=== PATIENT | male | born 1960 | race Hispanic/Latino ===

== ENCOUNTER 2018-11-06 14:57 | Inpatient (IN) | payer SELFPAY ==
[~2018-11-06] VITALS: Ht 165.1 cm; Wt 85.4 kg
[2018-11-06 15:31] LABS: APPEARANCE,URINE Clear (CLEAR); BILIRUBIN,URINE Negative (NEGATIVE); COLOR,URINE Yellow (YELLOW); GLUCOSE, URINE (UA) >=1000 mg/dL (NEGATIVE); KETONES,URINE 15 mg/dL (NEGATIVE); LEUKOCYTE ESTERASE ,URINE Negative (NEGATIVE); NITRATE,URINE Negative (NEGATIVE); OCCULT BLOOD,URINE Negative (NEGATIVE); PROTEIN,URINE POS 2+ mg/dL (NEGATIVE); UROBILINOGEN,URINE 0.2 mg/dL (0.2-1.0)
[2018-11-06] MEDS ORDERED: PROCHLORPERAZINE EDISYLATE 10 MG/2 ML VIAL ONE (15:40)
[2018-11-06] MEDS ORDERED: DiphenhydrAMINE HCL 50 MG/ML VIAL ONE (15:40)
[2018-11-06 15:43] LABS: AMPHET/METH SCREEN,URINE NEGATIVE (NEGATIVE); BARBITURATE SCREEN, URINE NEGATIVE (NEGATIVE); BENZODIAZEPINES SCREEN,URINE NEGATIVE (NEGATIVE); CANNABINOID SCREEN,URINE NEGATIVE (NEGATIVE); COCAINE SCREEN,URINE NEGATIVE (NEGATIVE); OPIATE SCREEN,URINE NEGATIVE (NEGATIVE); PHENCYCLIDINE SCREEN,URINE NEGATIVE (NEGATIVE)
[2018-11-06 16:07] LABS: BACTERIA,URINE Rare /HPF (None Seen); HYALINE CASTS, URINE 0-1 /LPF (0-1 /LPF); RBC,URINE 0-1 /HPF (0-1); SQUAMOUS EPITHELIAL CELL,UR Rare /HPF (0-2); WBC,URINE 0-1 /HPF (0-1)
[2018-11-06 16:10] LABS: BASOPHILS % (AUTO) 0.3 % (0.0-5.0); EOSINOPHILS % (AUTO) 1.7 % (0.0-8.0); HEMATOCRIT 40.2 % (42-54); LYMPHOCYTES % (AUTO) 35.4 % (21.0-51.0); MEAN CORPUSCULAR HEMOGLOBIN 31.9 pg (27.0-33.0); MEAN CORPUSCULAR HGB CONC 36.6 g/dL (32.0-36.0); MEAN CORPUSCULAR VOLUME 87.2 fL (79-99); MONOCYTES % (AUTO) 5.6 % (3.0-13.0); RED BLOOD CELL COUNT(AUTO) 4.62 MIL/uL (4.50-6.20); RED CELL DISTRIBUTION WIDTH 13.8 % (11.0-15.5); WHITE BLOOD COUNT (AUTO) 6.6 K/uL (4.8-10.8)
[2018-11-06 16:11] LABS: NUCLEATED RED BLOOD CELLS 0.2 % (0.0-0.19); PLATELET COUNT (AUTO) 151 K/uL (130-400)
[2018-11-06 16:18] LABS: POTASSIUM 3.7 mmol/L (3.5-5.1)
[2018-11-06 16:26] LABS: MYOGLOBIN 42 ng/mL (10-92); TROPONIN I < 0.04 ng/mL (0.00-0.06)
[2018-11-06 16:43] LABS: BILIRUBIN,TOTAL 0.2 mg/dL (0.2-1.0)
[2018-11-06 16:45] LABS: ALBUMIN 3.2 g/dL (3.5-5.0); TOTAL PROTEIN, SERUM 5.3 g/dL (6.0-8.3)
[2018-11-06 16:46] LABS: CREATINE KINASE, TOTAL 113 U/L (21-232)
[2018-11-06 17:37] LABS: POTASSIUM 3.6 mmol/L (3.5-5.1)
[2018-11-06 18:21] LABS: CREATININE 0.9 mg/dL (0.5-1.5)
[2018-11-06] MEDS ORDERED: LACTULOSE 20 GM/30 ML UDCUP PO PRN (19:00)
[2018-11-06] MEDS ORDERED: ACETAMINOPHEN 325 MG TAB PO PRN (19:00)
[2018-11-06] MEDS ORDERED: INSULIN HUMULIN R 100 UNIT/ML 3ML ONE (20:06)
[2018-11-06 20:23] LABS: TRIGLYCERIDES 26 mg/dL (30-200)
[2018-11-06 20:27] LABS: HEMOGLOBIN A1C 10.4 % (4.0-6.0)
[2018-11-06 20:45] LABS: LDL DIRECT 128 mg/dL (0-99)
[2018-11-06] MEDS: INSULIN GLARGINE 100 UNITS/ML 10 ML VIAL SQ SCH (21:00)
[2018-11-06] MEDS: FAMOTIDINE 20MG TAB 20 MG TAB PO SCH (21:00)
[2018-11-06] MEDS: INSULIN HUMULIN R 100 UNIT/ML 3ML SQ SCH (21:00)
[2018-11-06 21:25] LABS: CHOLESTEROL 645 mg/dL (<200); HDL CHOLESTEROL 34 mg/dL (29-71)
[2018-11-06] MEDS ORDERED: FAMOTIDINE 20MG TAB 20 MG TAB ONE (22:39)
[2018-11-06] MEDS ORDERED: SODIUM CHLORIDE 0.9% 1000ML 1,000 ML IV ONE (22:40)
[2018-11-07] VITALS (7 sets, daily range): BP systolic 129–178; BP diastolic 62–77
[2018-11-07] MEDS: MORPHINE SULFATE 2 MG/ML 1ML SYG IV PRN ×2 (01:51→20:53)
[2018-11-07] MEDS: SODIUM CHLORIDE 0.9% 1000ML 1,000 ML IV SCH (01:53)
[2018-11-07] MEDS: ONDANSETRON HCL 4 MG/2 ML VIAL IV PRN ×2 (01:57→08:52)
[2018-11-07 05:18] LABS: HEMATOCRIT 36.1 % (42-54); MEAN CORPUSCULAR HEMOGLOBIN 43.9 pg (27.0-33.0); MEAN CORPUSCULAR HGB CONC 51.3 g/dL (32.0-36.0); MEAN CORPUSCULAR VOLUME 85.6 fL (79-99); NUCLEATED RED BLOOD CELLS 0.1 % (0.0-0.19); PLATELET COUNT (AUTO) 150 K/uL (130-400); RED BLOOD CELL COUNT(AUTO) 4.22 MIL/uL (4.50-6.20); RED CELL DISTRIBUTION WIDTH 13.8 % (11.0-15.5); WHITE BLOOD COUNT (AUTO) 7.6 K/uL (4.8-10.8)
[2018-11-07 05:57] LABS: CREATININE 0.9 mg/dL (0.5-1.5)
[2018-11-07] MEDS: INSULIN HUMULIN R 100 UNIT/ML 3ML SQ SCH ×4 (06:10→20:43)
[2018-11-07 06:12] LABS: BAND NEUTROPHILS % (MANUAL) 1 % (0-2); BASOPHILS % (MANUAL) 1 % (0-2); EOSINOPHILS % (MANUAL) 1 % (1-6); LYMPHOCYTES % (MANUAL) 41 % (22-44); MAN.DIFF COMMENT-IMPRESSION MANUAL DIFFERENTIAL; MONOCYTES % (MANUAL) 4 % (2-9); PLATELET MORPHOLOGY COMMENT ADEQUATE; REACTIVE LYMPHOCYTES 2 % (0-0); SEGMENTED NEUTROPHILS % 50 % (40-70)
[2018-11-07] MEDS: ENOXAPARIN SODIUM 40 MG/0.4 ML SYRINGE SQ SCH (08:44)
[2018-11-07] MEDS: FAMOTIDINE 20MG TAB 20 MG TAB PO SCH ×2 (08:44→20:38)
[2018-11-07] MEDS: ACETAMINOPHEN 325 MG TAB PO PRN (08:53)
[2018-11-07] MEDS ORDERED: ATEN50TA PO (09:26)
[2018-11-07] MEDS ORDERED: CHLO100T2 PO (09:26)
[2018-11-07] MEDS ORDERED: METF-444 PO (09:26)
--- NOTE | 2018-11-07 14:08 | NUR ---
Nutrition Intervention: Nutrition consult due to poor appetite. Pt. on 75gm CCD diet. Pt. reports fair p.o. intake, although states felt nauseated and threw up x 2 during his meal. Pt. on Zofran for problems with N/V. Labs reviewed(Alb 3.2, BG 176, HgbA1c 10.4%, Chol 645, LDL Chol 128). BMI: 31.3, Obesity Grade 1. Pt. and family educated on Diabetic Heart Healthy diet and provided with education material. Pt's family verbalized understanding. Recommendations: 1) Rec. 75gm CCD Heart Healthy diet. 2) Diabetic Heart healthy diet education given to patient and family. 3) Continue to monitor pt's nutritional status. 4) Consult RD as nutrition concerns arise. Addendum: 11/07/18 at [address] Amended: Links added.
--- NOTE | 2018-11-07 19:30 | NUR ---
ROUNDS PATIENT AWAKE AND ALERT. VOICES ALL NEEDS. NO COMPLAINTS OF PAIN VOICED AT THIS TIME. VITALS STABLE. AFEBRILE. NS INFUSING AT 100ML/HR. UP WITH ASSIST. USES CALL LIGHT. FOLLOWS COMMANDS. FALL PRECAUTIONS IN PLACE. AUTO ACCESSORIES INSTALLER IN PLACE. NSR. CALL LIGHT WITHIN REACH. WILL CONTINUE TO BE OBSERVED. Addendum: 11/07/18 at 2304 by ABUNDIO GOLDEN RN RN Amended: Links added.
[2018-11-07] MEDS: INSULIN GLARGINE 100 UNITS/ML 10 ML VIAL SQ SCH (20:41)
[2018-11-08] MEDS: SODIUM CHLORIDE 0.9% 1000ML 1,000 ML IV SCH ×2 (00:05→19:37)
[2018-11-08 04:00] VITALS: BP 150/76
[2018-11-08 05:53] LABS: HEMATOCRIT 35.5 % (42-54); MEAN CORPUSCULAR HEMOGLOBIN 39.3 pg (27.0-33.0); MEAN CORPUSCULAR HGB CONC 45.6 g/dL (32.0-36.0); MEAN CORPUSCULAR VOLUME 86.1 fL (79-99); NUCLEATED RED BLOOD CELLS 0.3 % (0.0-0.19); PLATELET COUNT (AUTO) 137 K/uL (130-400); RED BLOOD CELL COUNT(AUTO) 4.13 MIL/uL (4.50-6.20); RED CELL DISTRIBUTION WIDTH 14.5 % (11.0-15.5); WHITE BLOOD COUNT (AUTO) 6.2 K/uL (4.8-10.8)
[2018-11-08 06:00] LABS: POTASSIUM 3.8 mmol/L (3.5-5.1)
[2018-11-08 06:17] LABS: EOSINOPHILS % (MANUAL) 2 % (1-6); LYMPHOCYTES % (MANUAL) 42 % (22-44); MAN.DIFF COMMENT-IMPRESSION MANUAL DIFFERENTIAL; MONOCYTES % (MANUAL) 1 % (2-9); PLATELET MORPHOLOGY COMMENT ADEQUATE; SEGMENTED NEUTROPHILS % 55 % (40-70)
[2018-11-08 07:12] LABS: CREATININE 0.8 mg/dL (0.5-1.5)
[2018-11-08 08:00] VITALS: BP 156/90
[2018-11-08] MEDS: FAMOTIDINE 20MG TAB 20 MG TAB PO SCH ×2 (08:07→19:26)
[2018-11-08] MEDS: INSULIN HUMULIN R 100 UNIT/ML 3ML SQ SCH ×4 (08:07→20:49)
[2018-11-08] MEDS: ENOXAPARIN SODIUM 40 MG/0.4 ML SYRINGE SQ SCH (08:08)
[2018-11-08] MEDS: ACETAMINOPHEN 325 MG TAB PO PRN ×3 (08:12→19:27)
[2018-11-08 11:00] VITALS: BP 151/77
--- NOTE | 2018-11-08 13:38 | NUR ---
D/C PLAN cm spoke to pt regarding dc planning. pt lives with spouse. States she is ind. with ADL's. CM provided community resources packet. States spouse can assist in care if needed. Plan to home. CM to f/u. Addendum: 11/08/18 at 1339 by JAVIER GRANT CM Amended: Links added.
[2018-11-08 16:00] VITALS: BP 152/89
[2018-11-08 19:15] VITALS: BP 174/84
[2018-11-08] MEDS: INSULIN GLARGINE 100 UNITS/ML 10 ML VIAL SQ SCH (19:35)
--- NOTE | 2018-11-08 20:00 | NUR ---
MD ROUNDS PATIENT AWAKE AND ALERT, VOICES ALL NEEDS. MEDICATED PER MARS FOR COMPLAINTS OF A HEADACHE. PATIENT STATES THAT HEADACHE IS WORSENING. HERE AT PATIENTS BEDSIDE AWARE. POC DISCUSSED. NEW ORDERS RECEIVED AND CARRIED OUT. UP AD PETAR. RESP EVEN AND UNLABORED. NO SOB NOTED. ON ROOM AIR. VITALS STABLE. AFEBRILE. TOLERATING IVF WELL. NS INFUSING AT 100ML/HR. SPOUSE AT BEDSIDE. CALL LIGHT WITHIN REACH. WILL CONTINUE TO BE OBSERVED. Addendum: 11/09/18 at 0005 by ABUNDIO GOLDEN RN RN Amended: Links added.
[2018-11-08] MEDS: BUTALB/ACETAMINOPHEN/CAFFEINE 1 EACH TABLET PO PRN (20:47)
[2018-11-08 23:27] VITALS: BP 169/80
[2018-11-08] MEDS: HYDRALAZINE HCL 20 MG/ML VIAL IV PRN (23:41)
[2018-11-09 03:19] VITALS: BP 158/85
[2018-11-09] MEDS: BUTALB/ACETAMINOPHEN/CAFFEINE 1 EACH TABLET PO PRN ×3 (03:53→15:56)
[2018-11-09] MEDS: INSULIN HUMULIN R 100 UNIT/ML 3ML SQ SCH ×4 (06:06→21:00)
[2018-11-09] MEDS: SODIUM CHLORIDE 0.9% 1000ML 1,000 ML IV SCH (06:06)
[2018-11-09 07:55] VITALS: BP 156/78
[2018-11-09] MEDS: FAMOTIDINE 20MG TAB 20 MG TAB PO SCH ×2 (09:27→21:32)
[2018-11-09] MEDS: ENOXAPARIN SODIUM 40 MG/0.4 ML SYRINGE SQ SCH (09:28)
[2018-11-09] MEDS ORDERED: VALPROIC ACID (AS SODIUM SALT) 500 MG in SODIUM CHLORIDE 0.9% 50 ML IV SCH (10:00)
[2018-11-09 11:27] VITALS: BP 159/79
[2018-11-09 16:18] VITALS: BP 178/82
[2018-11-09] MEDS: HYDRALAZINE HCL 20 MG/ML VIAL IV PRN (18:23)
[2018-11-09] MEDS: HYDROCHLOROTHIAZIDE 25 MG TABLET PO SCH (18:50)
[2018-11-09] MEDS: LISINOPRIL 10 MG TABLET PO SCH (18:50)
[2018-11-09 19:00] VITALS: BP 148/85
[2018-11-09] MEDS ORDERED: METFORMIN HCL 850 MG TABLET PO SCH (20:45)
[2018-11-09] MEDS ORDERED: TEMAZEPAM 7.5 MG CAPSULE PO PRN (21:00)
[2018-11-09] MEDS ORDERED: ATORVASTATIN CALCIUM 20 MG TABLET PO SCH (21:15)
[2018-11-09] MEDS: VALPROATE SOD 250 MG/5 ML (PO) PO SCH (21:32)
[2018-11-09] MEDS: ACETAMINOPHEN 325 MG TAB PO PRN (21:33)
[2018-11-09] MEDS: ONDANSETRON HCL 4 MG/2 ML VIAL IV PRN (22:28)
[2018-11-10] VITALS: BP 162/83
[2018-11-10] MEDS: MORPHINE SULFATE 2 MG/ML 1ML SYG IV PRN (01:00)
[2018-11-10 04:00] VITALS: BP 143/73
[2018-11-10 04:57] LABS: BASOPHILS % (AUTO) 0.8 % (0.0-5.0); EOSINOPHILS % (AUTO) 1.4 % (0.0-8.0); HEMATOCRIT 39.7 % (42-54); LYMPHOCYTES % (AUTO) 37.3 % (21.0-51.0); MEAN CORPUSCULAR HEMOGLOBIN 33.9 pg (27.0-33.0); MEAN CORPUSCULAR HGB CONC 39.4 g/dL (32.0-36.0); MEAN CORPUSCULAR VOLUME 86.1 fL (79-99); MONOCYTES % (AUTO) 4.9 % (3.0-13.0); NEUTROPHILS % (AUTO) 55.6 % (40.0-77.0); NUCLEATED RED BLOOD CELLS 0.1 % (0.0-0.19); PLATELET COUNT (AUTO) 137 K/uL (130-400); RED BLOOD CELL COUNT(AUTO) 4.61 MIL/uL (4.50-6.20); RED CELL DISTRIBUTION WIDTH 14.3 % (11.0-15.5); WHITE BLOOD COUNT (AUTO) 6.7 K/uL (4.8-10.8)
[2018-11-10 05:17] LABS: MAGNESIUM 1.7 mg/dL (1.80-2.40); PHOSPHORUS 2.9 mg/dL (2.5-4.9); POTASSIUM 4.3 mmol/L (3.5-5.1)
[2018-11-10 05:41] LABS: CREATININE 0.5 mg/dL (0.5-1.5)
[2018-11-10] MEDS: ONDANSETRON HCL 4 MG/2 ML VIAL IV PRN ×2 (05:50→12:09)
[2018-11-10] MEDS: ACETAMINOPHEN 325 MG TAB PO PRN ×2 (05:54→09:15)
[2018-11-10] MEDS: INSULIN HUMULIN R 100 UNIT/ML 3ML SQ SCH (06:35)
[2018-11-10] MEDS ORDERED: GLIPIZIDE 5 MG TABLET PO SCH (07:30)
[2018-11-10] MEDS ORDERED: METFORMIN HCL 850 MG TABLET PO SCH (07:30)
[2018-11-10 08:23] VITALS: BP 167/98
[2018-11-10] MEDS ORDERED: ASPIRIN 81MG TAB.CHEW PO SCH (09:00)
[2018-11-10] MEDS: ENOXAPARIN SODIUM 40 MG/0.4 ML SYRINGE SQ SCH (09:10)
[2018-11-10] MEDS: LISINOPRIL 10 MG TABLET PO SCH (09:11)
[2018-11-10] MEDS: FAMOTIDINE 20MG TAB 20 MG TAB PO SCH (09:11)
[2018-11-10] MEDS: VALPROATE SOD 250 MG/5 ML (PO) PO SCH (09:11)
[2018-11-10] MEDS: HYDROCHLOROTHIAZIDE 25 MG TABLET PO SCH (09:11)
[2018-11-10] MEDS ORDERED: ONDA4TAB4 PO (10:38)
[2018-11-10] MEDS ORDERED: LISI-613 PO (10:38)
[2018-11-10] MEDS ORDERED: METF850T PO (10:38)
[2018-11-10] MEDS ORDERED: FAMO20TA8 PO (10:38)
[2018-11-10] MEDS ORDERED: NAPR-1023 PO (10:38)
[2018-11-10] MEDS ORDERED: HYDR25TA PO (10:38)
[2018-11-10] MEDS ORDERED: GLIP5TAB11 PO (10:38)
[2018-11-10 11:31] VITALS: BP 149/76
[2018-11-11] MEDS ORDERED: LISINOPRIL 20 MG TABLET PO SCH (09:00)
== END 2018-11-10 13:38 | disposition home or self-care (01) | DRG 552 ==
LOC: EDH 14:57 → OBSVTOIN 14:58 → EDHIP 14:58 → 4AH 11-07 00:28
PROVIDERS: ADMIT Internal Medicine; ATTEND Internal Medicine
DX: M54.81 Occipital neuralgia (principal); E87.1 Hypo-osmolality and hyponatremia; E44.0 Moderate protein-calorie malnutrition; I16.0 Hypertensive urgency; I10 Essential (primary) hypertension; R29.810 Facial weakness; R45.86 Emotional lability; E11.9 Type 2 diabetes mellitus without complications; Z68.31 Body mass index [BMI] 31.0-31.9, adult; Z87.891 Personal history of nicotine dependence
CPT/HCPCS: 36415; 70450; 70544; 70551; 80048; 80053; 80061; 80305; 81001; 82550; 82948; 83036; 83735; 83874; 84100; 84484; 85025; 85651; 86140; 93005; G0378; J0360; J0780; J1200; J1650; J1815; J2405; J7030